=== PATIENT | male | born 1965 | race African-American/Black ===

== ENCOUNTER 2020-08-22 09:49 | Outpatient (CLI) | payer MEDICARE, OTHER | END 2020-08-22 09:50 | disposition home or self-care (01) | LOC: CSHWCC 09:49 | PROVIDERS: ATTEND Nurse Practitioner Family | DX: I87.311 Chronic venous hypertension (idiopathic) with ulcer of right lower extremity (principal); E11.621 Type 2 diabetes mellitus with foot ulcer; L97.419 Non-pressure chronic ulcer of right heel and midfoot with unspecified severity; L97.819 Non-pressure chronic ulcer of other part of right lower leg with unspecified severity; R60.0 Localized edema; L97.511 Non-pressure chronic ulcer of other part of right foot limited to breakdown of skin; E78.2 Mixed hyperlipidemia; F15.10 Other stimulant abuse, uncomplicated; I25.810 Atherosclerosis of coronary artery bypass graft(s) without angina pectoris; I70.25 Atherosclerosis of native arteries of other extremities with ulceration; L73.8 Other specified follicular disorders; Z91.19 Patient's noncompliance with other medical treatment and regimen; I12.0 Hypertensive chronic kidney disease with stage 5 chronic kidney disease or end stage renal disease; E11.22 Type 2 diabetes mellitus with diabetic chronic kidney disease; N18.6 End stage renal disease | CPT/HCPCS: 97605; 99213; G0463 ==

== ENCOUNTER 2020-09-02 10:43 | Outpatient (CLI) | payer MEDICARE, OTHER | END 2020-09-02 10:44 | disposition home or self-care (01) | LOC: CSHWCC 10:43 | PROVIDERS: ATTEND Nurse Practitioner Family | DX: I87.311 Chronic venous hypertension (idiopathic) with ulcer of right lower extremity (principal); I87.2 Venous insufficiency (chronic) (peripheral); E11.621 Type 2 diabetes mellitus with foot ulcer; L97.419 Non-pressure chronic ulcer of right heel and midfoot with unspecified severity; L97.819 Non-pressure chronic ulcer of other part of right lower leg with unspecified severity; L97.511 Non-pressure chronic ulcer of other part of right foot limited to breakdown of skin; R60.0 Localized edema; E78.2 Mixed hyperlipidemia; I12.0 Hypertensive chronic kidney disease with stage 5 chronic kidney disease or end stage renal disease; N18.6 End stage renal disease; E11.51 Type 2 diabetes mellitus with diabetic peripheral angiopathy without gangrene; I70.25 Atherosclerosis of native arteries of other extremities with ulceration; F15.10 Other stimulant abuse, uncomplicated; I25.810 Atherosclerosis of coronary artery bypass graft(s) without angina pectoris; L73.8 Other specified follicular disorders; Z91.19 Patient's noncompliance with other medical treatment and regimen | CPT/HCPCS: 29581; 97139; G0463; 99213 ==

== ENCOUNTER 2020-09-07 12:30 | Outpatient (CLI) | payer MEDICARE, OTHER | END 2020-09-07 12:31 | disposition home or self-care (01) | LOC: CSHWCC 12:30 | PROVIDERS: ATTEND Nurse Practitioner Family | DX: I87.311 Chronic venous hypertension (idiopathic) with ulcer of right lower extremity (principal); E11.621 Type 2 diabetes mellitus with foot ulcer; L97.419 Non-pressure chronic ulcer of right heel and midfoot with unspecified severity; L97.819 Non-pressure chronic ulcer of other part of right lower leg with unspecified severity; R60.0 Localized edema; L97.511 Non-pressure chronic ulcer of other part of right foot limited to breakdown of skin; E78.2 Mixed hyperlipidemia; F15.10 Other stimulant abuse, uncomplicated; I25.810 Atherosclerosis of coronary artery bypass graft(s) without angina pectoris; I70.25 Atherosclerosis of native arteries of other extremities with ulceration; I87.2 Venous insufficiency (chronic) (peripheral); L73.8 Other specified follicular disorders; N18.6 End stage renal disease; E11.22 Type 2 diabetes mellitus with diabetic chronic kidney disease; Z91.19 Patient's noncompliance with other medical treatment and regimen; I12.0 Hypertensive chronic kidney disease with stage 5 chronic kidney disease or end stage renal disease | CPT/HCPCS: 29581; 97139; G0463; 99213 ==

== ENCOUNTER 2021-03-17 10:36 | Outpatient (CLI) | payer MEDICARE, OTHER | END 2021-03-17 10:37 | disposition home or self-care (01) | LOC: CSHWCC 10:36 | PROVIDERS: ATTEND Nurse Practitioner Family | DX: E11.621 Type 2 diabetes mellitus with foot ulcer (principal); L97.412 Non-pressure chronic ulcer of right heel and midfoot with fat layer exposed; L97.419 Non-pressure chronic ulcer of right heel and midfoot with unspecified severity; L97.511 Non-pressure chronic ulcer of other part of right foot limited to breakdown of skin; E78.2 Mixed hyperlipidemia; F15.10 Other stimulant abuse, uncomplicated; I12.0 Hypertensive chronic kidney disease with stage 5 chronic kidney disease or end stage renal disease; E11.22 Type 2 diabetes mellitus with diabetic chronic kidney disease; I25.810 Atherosclerosis of coronary artery bypass graft(s) without angina pectoris; I70.25 Atherosclerosis of native arteries of other extremities with ulceration; I87.2 Venous insufficiency (chronic) (peripheral); L73.8 Other specified follicular disorders; N18.6 End stage renal disease; R60.0 Localized edema; Z91.19 Patient's noncompliance with other medical treatment and regimen | CPT/HCPCS: 97139; G0463; 99213 ==

== ENCOUNTER 2021-03-31 09:56 | Outpatient (CLI) | payer MEDICARE, OTHER | END 2021-03-31 09:57 | disposition home or self-care (01) | LOC: CSHWCC 09:56 | PROVIDERS: ATTEND Nurse Practitioner Family | DX: I87.2 Venous insufficiency (chronic) (peripheral) (principal); E11.621 Type 2 diabetes mellitus with foot ulcer; L97.412 Non-pressure chronic ulcer of right heel and midfoot with fat layer exposed; L97.419 Non-pressure chronic ulcer of right heel and midfoot with unspecified severity; L97.511 Non-pressure chronic ulcer of other part of right foot limited to breakdown of skin; R60.0 Localized edema; I12.0 Hypertensive chronic kidney disease with stage 5 chronic kidney disease or end stage renal disease; E11.22 Type 2 diabetes mellitus with diabetic chronic kidney disease; N18.6 End stage renal disease; I25.810 Atherosclerosis of coronary artery bypass graft(s) without angina pectoris; E11.51 Type 2 diabetes mellitus with diabetic peripheral angiopathy without gangrene; I70.25 Atherosclerosis of native arteries of other extremities with ulceration; E78.2 Mixed hyperlipidemia; F15.10 Other stimulant abuse, uncomplicated; L73.8 Other specified follicular disorders; Z91.19 Patient's noncompliance with other medical treatment and regimen | CPT/HCPCS: 99213; G0463 ==

== ENCOUNTER 2021-04-03 08:19 | Outpatient (CLI) | payer MEDICARE, OTHER | END 2021-04-03 08:20 | disposition home or self-care (01) | LOC: CSHWCC 08:19 | PROVIDERS: ATTEND Nurse Practitioner Family | DX: E11.621 Type 2 diabetes mellitus with foot ulcer (principal); L97.412 Non-pressure chronic ulcer of right heel and midfoot with fat layer exposed; L97.511 Non-pressure chronic ulcer of other part of right foot limited to breakdown of skin; E11.622 Type 2 diabetes mellitus with other skin ulcer; L97.809 Non-pressure chronic ulcer of other part of unspecified lower leg with unspecified severity; R60.0 Localized edema; E78.2 Mixed hyperlipidemia; F15.10 Other stimulant abuse, uncomplicated; I25.810 Atherosclerosis of coronary artery bypass graft(s) without angina pectoris; I70.25 Atherosclerosis of native arteries of other extremities with ulceration; I87.2 Venous insufficiency (chronic) (peripheral); L73.8 Other specified follicular disorders; I12.0 Hypertensive chronic kidney disease with stage 5 chronic kidney disease or end stage renal disease; N18.6 End stage renal disease; Z91.19 Patient's noncompliance with other medical treatment and regimen | CPT/HCPCS: 29445; 99213; G0463 ==

== ENCOUNTER 2021-04-10 08:20 | Outpatient (CLI) | payer MEDICARE, OTHER | END 2021-04-10 08:21 | disposition home or self-care (01) | LOC: CSHWCC 08:20 | PROVIDERS: ATTEND Nurse Practitioner Family | DX: E11.621 Type 2 diabetes mellitus with foot ulcer (principal); L97.412 Non-pressure chronic ulcer of right heel and midfoot with fat layer exposed; L97.511 Non-pressure chronic ulcer of other part of right foot limited to breakdown of skin; E11.622 Type 2 diabetes mellitus with other skin ulcer; L97.809 Non-pressure chronic ulcer of other part of unspecified lower leg with unspecified severity; R60.0 Localized edema; E78.2 Mixed hyperlipidemia; F15.10 Other stimulant abuse, uncomplicated; I25.810 Atherosclerosis of coronary artery bypass graft(s) without angina pectoris; I12.0 Hypertensive chronic kidney disease with stage 5 chronic kidney disease or end stage renal disease; N18.6 End stage renal disease; I87.2 Venous insufficiency (chronic) (peripheral); L73.8 Other specified follicular disorders; I70.25 Atherosclerosis of native arteries of other extremities with ulceration; Z91.19 Patient's noncompliance with other medical treatment and regimen | CPT/HCPCS: 11042; 29445; 97139; G0463; 99213 ==

== ENCOUNTER 2021-04-17 09:15 | Outpatient (CLI) | payer MEDICARE, OTHER | END 2021-04-17 09:16 | disposition home or self-care (01) | LOC: CSHWCC 09:15 | PROVIDERS: ATTEND Nurse Practitioner Family | DX: E11.621 Type 2 diabetes mellitus with foot ulcer (principal); L97.412 Non-pressure chronic ulcer of right heel and midfoot with fat layer exposed; L97.511 Non-pressure chronic ulcer of other part of right foot limited to breakdown of skin; E78.2 Mixed hyperlipidemia; F15.10 Other stimulant abuse, uncomplicated; I12.0 Hypertensive chronic kidney disease with stage 5 chronic kidney disease or end stage renal disease; I25.810 Atherosclerosis of coronary artery bypass graft(s) without angina pectoris; E11.22 Type 2 diabetes mellitus with diabetic chronic kidney disease; I70.25 Atherosclerosis of native arteries of other extremities with ulceration; I87.2 Venous insufficiency (chronic) (peripheral); L73.8 Other specified follicular disorders; N18.6 End stage renal disease; R60.0 Localized edema; Z91.19 Patient's noncompliance with other medical treatment and regimen | CPT/HCPCS: 29445; 97139; G0463; 99213 ==

== ENCOUNTER 2021-04-26 09:36 | Outpatient (CLI) | payer MEDICARE, OTHER | END 2021-04-26 09:37 | disposition home or self-care (01) | LOC: CSHWCC 09:36 | PROVIDERS: ATTEND Nurse Practitioner Family | DX: E11.621 Type 2 diabetes mellitus with foot ulcer (principal); L97.412 Non-pressure chronic ulcer of right heel and midfoot with fat layer exposed; L97.511 Non-pressure chronic ulcer of other part of right foot limited to breakdown of skin; E78.2 Mixed hyperlipidemia; F15.10 Other stimulant abuse, uncomplicated; I25.810 Atherosclerosis of coronary artery bypass graft(s) without angina pectoris; I70.25 Atherosclerosis of native arteries of other extremities with ulceration; I87.2 Venous insufficiency (chronic) (peripheral); L73.8 Other specified follicular disorders; I12.0 Hypertensive chronic kidney disease with stage 5 chronic kidney disease or end stage renal disease; N18.6 End stage renal disease; R60.0 Localized edema; Z91.19 Patient's noncompliance with other medical treatment and regimen ==

== ENCOUNTER 2021-04-28 09:55 | Outpatient (CLI) | payer MEDICARE, OTHER | END 2021-04-28 09:56 | disposition home or self-care (01) | LOC: CSHWCC 09:55 | PROVIDERS: ATTEND Nurse Practitioner Family | DX: E11.621 Type 2 diabetes mellitus with foot ulcer (principal); L97.412 Non-pressure chronic ulcer of right heel and midfoot with fat layer exposed; L97.511 Non-pressure chronic ulcer of other part of right foot limited to breakdown of skin; L89.892 Pressure ulcer of other site, stage 2; R60.0 Localized edema; E78.2 Mixed hyperlipidemia; F15.10 Other stimulant abuse, uncomplicated; I10 Essential (primary) hypertension; I25.810 Atherosclerosis of coronary artery bypass graft(s) without angina pectoris; I70.25 Atherosclerosis of native arteries of other extremities with ulceration; I87.2 Venous insufficiency (chronic) (peripheral); L73.8 Other specified follicular disorders; I12.0 Hypertensive chronic kidney disease with stage 5 chronic kidney disease or end stage renal disease; N18.6 End stage renal disease; Z91.19 Patient's noncompliance with other medical treatment and regimen | CPT/HCPCS: 29445; 99213; G0463 ==

== ENCOUNTER 2021-05-03 09:52 | Outpatient (CLI) | payer MEDICARE, OTHER | END 2021-05-03 09:53 | disposition home or self-care (01) | LOC: CSHWCC 09:52 | PROVIDERS: ATTEND Nurse Practitioner Family | DX: L89.892 Pressure ulcer of other site, stage 2 (principal); E11.621 Type 2 diabetes mellitus with foot ulcer; L97.412 Non-pressure chronic ulcer of right heel and midfoot with fat layer exposed; L97.511 Non-pressure chronic ulcer of other part of right foot limited to breakdown of skin; R60.0 Localized edema; E78.2 Mixed hyperlipidemia; F15.10 Other stimulant abuse, uncomplicated; I10 Essential (primary) hypertension; I25.810 Atherosclerosis of coronary artery bypass graft(s) without angina pectoris; I70.25 Atherosclerosis of native arteries of other extremities with ulceration; I87.2 Venous insufficiency (chronic) (peripheral); L73.8 Other specified follicular disorders; N18.6 End stage renal disease; Z91.19 Patient's noncompliance with other medical treatment and regimen ==

== ENCOUNTER 2021-05-17 10:59 | Outpatient (CLI) | payer MEDICARE, OTHER | END 2021-05-17 11:00 | disposition home or self-care (01) | LOC: CSHWCC 10:59 | PROVIDERS: ATTEND Nurse Practitioner Family | DX: L89.892 Pressure ulcer of other site, stage 2 (principal); E11.621 Type 2 diabetes mellitus with foot ulcer; L97.412 Non-pressure chronic ulcer of right heel and midfoot with fat layer exposed; L97.511 Non-pressure chronic ulcer of other part of right foot limited to breakdown of skin; R60.0 Localized edema; E78.2 Mixed hyperlipidemia; F15.10 Other stimulant abuse, uncomplicated; I25.810 Atherosclerosis of coronary artery bypass graft(s) without angina pectoris; I87.2 Venous insufficiency (chronic) (peripheral); I70.25 Atherosclerosis of native arteries of other extremities with ulceration; L73.8 Other specified follicular disorders; I12.0 Hypertensive chronic kidney disease with stage 5 chronic kidney disease or end stage renal disease; N18.6 End stage renal disease; Z91.19 Patient's noncompliance with other medical treatment and regimen | CPT/HCPCS: 97139; G0463; 29445; 99212; 99213 ==

== ENCOUNTER 2021-05-26 11:15 | Outpatient (CLI) | payer MEDICARE, OTHER | END 2021-05-26 11:16 | disposition home or self-care (01) | LOC: CSHWCC 11:15 | PROVIDERS: ATTEND Nurse Practitioner Family | DX: E11.621 Type 2 diabetes mellitus with foot ulcer (principal); L97.419 Non-pressure chronic ulcer of right heel and midfoot with unspecified severity; E11.22 Type 2 diabetes mellitus with diabetic chronic kidney disease; I12.0 Hypertensive chronic kidney disease with stage 5 chronic kidney disease or end stage renal disease; L97.511 Non-pressure chronic ulcer of other part of right foot limited to breakdown of skin; E78.2 Mixed hyperlipidemia; F15.10 Other stimulant abuse, uncomplicated; I25.810 Atherosclerosis of coronary artery bypass graft(s) without angina pectoris; I70.25 Atherosclerosis of native arteries of other extremities with ulceration; I87.2 Venous insufficiency (chronic) (peripheral); L73.8 Other specified follicular disorders; N18.6 End stage renal disease; R60.0 Localized edema; Z91.19 Patient's noncompliance with other medical treatment and regimen ==

== ENCOUNTER 2021-06-02 11:07 | Outpatient (CLI) | payer MEDICARE, OTHER | END 2021-06-02 11:08 | disposition home or self-care (01) | LOC: CSHWCC 11:07 | PROVIDERS: ATTEND Nurse Practitioner Family | DX: E11.621 Type 2 diabetes mellitus with foot ulcer (principal); L97.419 Non-pressure chronic ulcer of right heel and midfoot with unspecified severity; L97.511 Non-pressure chronic ulcer of other part of right foot limited to breakdown of skin; R60.0 Localized edema; E78.2 Mixed hyperlipidemia; F15.10 Other stimulant abuse, uncomplicated; I25.810 Atherosclerosis of coronary artery bypass graft(s) without angina pectoris; I70.25 Atherosclerosis of native arteries of other extremities with ulceration; I87.2 Venous insufficiency (chronic) (peripheral); L73.8 Other specified follicular disorders; I12.0 Hypertensive chronic kidney disease with stage 5 chronic kidney disease or end stage renal disease; N18.6 End stage renal disease; Z91.19 Patient's noncompliance with other medical treatment and regimen | CPT/HCPCS: 29445; 99213; G0463 ==

== ENCOUNTER 2021-06-09 13:55 | Outpatient (CLI) | payer MEDICARE, OTHER | END 2021-06-09 13:56 | disposition home or self-care (01) | LOC: CSHWCC 13:55 | PROVIDERS: ATTEND Nurse Practitioner Family | DX: I87.2 Venous insufficiency (chronic) (peripheral) (principal); E11.621 Type 2 diabetes mellitus with foot ulcer; L97.419 Non-pressure chronic ulcer of right heel and midfoot with unspecified severity; L97.511 Non-pressure chronic ulcer of other part of right foot limited to breakdown of skin; R60.0 Localized edema; I12.0 Hypertensive chronic kidney disease with stage 5 chronic kidney disease or end stage renal disease; N18.6 End stage renal disease; E11.51 Type 2 diabetes mellitus with diabetic peripheral angiopathy without gangrene; I70.25 Atherosclerosis of native arteries of other extremities with ulceration; I25.810 Atherosclerosis of coronary artery bypass graft(s) without angina pectoris; E78.2 Mixed hyperlipidemia; F15.10 Other stimulant abuse, uncomplicated; Z91.19 Patient's noncompliance with other medical treatment and regimen | CPT/HCPCS: 87070; 87077; 87186; 87205 ==

== ENCOUNTER 2021-06-16 09:00 | Outpatient (CLI) | payer MEDICARE, OTHER | END 2021-06-16 09:01 | disposition home or self-care (01) | LOC: CSHWCC 09:00 | PROVIDERS: ATTEND Nurse Practitioner Family | DX: E11.621 Type 2 diabetes mellitus with foot ulcer (principal); L97.412 Non-pressure chronic ulcer of right heel and midfoot with fat layer exposed; R60.0 Localized edema ==

== ENCOUNTER 2021-06-26 08:23 | Outpatient (CLI) | payer MEDICARE, OTHER | END 2021-06-26 08:24 | disposition home or self-care (01) | LOC: CSHWCC 08:23 | PROVIDERS: ATTEND Nurse Practitioner Family | DX: E11.621 Type 2 diabetes mellitus with foot ulcer (principal); L97.412 Non-pressure chronic ulcer of right heel and midfoot with fat layer exposed; R60.0 Localized edema | CPT/HCPCS: 99213; G0463 ==

== ENCOUNTER 2021-07-12 09:05 | Outpatient (CLI) | payer MEDICARE, OTHER | END 2021-07-12 09:06 | disposition home or self-care (01) | LOC: CSHWCC 09:05 | PROVIDERS: ATTEND Nurse Practitioner Family | DX: E11.621 Type 2 diabetes mellitus with foot ulcer (principal); L97.419 Non-pressure chronic ulcer of right heel and midfoot with unspecified severity; R60.0 Localized edema | CPT/HCPCS: 29445 ==

== ENCOUNTER 2021-07-19 08:51 | Outpatient (CLI) | payer MEDICARE, MEDICAID | END 2021-07-19 08:52 | disposition home or self-care (01) | LOC: CSHWCC 08:51 | PROVIDERS: ATTEND Nurse Practitioner Family | DX: E11.621 Type 2 diabetes mellitus with foot ulcer (principal); L97.412 Non-pressure chronic ulcer of right heel and midfoot with fat layer exposed; R60.0 Localized edema | CPT/HCPCS: 29445 ==

== ENCOUNTER 2021-08-18 08:18 | Outpatient (CLI) | payer MEDICARE, MEDICAID | END 2021-08-18 08:19 | disposition home or self-care (01) | LOC: CSHWCC 08:18 | PROVIDERS: ATTEND Nurse Practitioner Family | DX: E11.621 Type 2 diabetes mellitus with foot ulcer (principal); L97.412 Non-pressure chronic ulcer of right heel and midfoot with fat layer exposed; S81.801D Unspecified open wound, right lower leg, subsequent encounter; R60.0 Localized edema ==

== ENCOUNTER 2021-08-25 08:29 | Outpatient (CLI) | payer MEDICARE, MEDICAID | END 2021-08-25 08:30 | disposition home or self-care (01) | LOC: CSHWCC 08:29 | PROVIDERS: ATTEND Nurse Practitioner Family | DX: S81.801D Unspecified open wound, right lower leg, subsequent encounter (principal); E11.621 Type 2 diabetes mellitus with foot ulcer; L97.412 Non-pressure chronic ulcer of right heel and midfoot with fat layer exposed; R60.0 Localized edema | CPT/HCPCS: 29445 ==

== ENCOUNTER 2021-09-11 08:59 | Outpatient (CLI) | payer MEDICARE, OTHER | END 2021-09-11 09:00 | disposition home or self-care (01) | LOC: CSHWCC 08:59 | PROVIDERS: ATTEND Nurse Practitioner Family | DX: E11.621 Type 2 diabetes mellitus with foot ulcer (principal); L97.516 Non-pressure chronic ulcer of other part of right foot with bone involvement without evidence of necrosis; R60.0 Localized edema | CPT/HCPCS: 99213; G0463 ==

== ENCOUNTER 2021-09-22 08:40 | Outpatient (CLI) | payer MEDICARE, OTHER | END 2021-09-22 08:41 | disposition home or self-care (01) | LOC: CSHWCC 08:40 | PROVIDERS: ATTEND Nurse Practitioner Family | DX: E11.621 Type 2 diabetes mellitus with foot ulcer (principal); L97.516 Non-pressure chronic ulcer of other part of right foot with bone involvement without evidence of necrosis | CPT/HCPCS: 11042 ==

== ENCOUNTER 2021-09-29 10:06 | Outpatient (CLI) | payer MEDICARE, OTHER | END 2021-09-29 10:07 | disposition home or self-care (01) | LOC: CSHWCC 10:06 | PROVIDERS: ATTEND Nurse Practitioner Family | DX: E11.621 Type 2 diabetes mellitus with foot ulcer (principal); L97.516 Non-pressure chronic ulcer of other part of right foot with bone involvement without evidence of necrosis; R60.0 Localized edema ==

== ENCOUNTER 2021-10-05 14:26 | Outpatient (CLI) | payer MEDICARE, OTHER | END 2021-10-05 14:27 | disposition home or self-care (01) | LOC: CSHWCC 14:26 | PROVIDERS: ATTEND Nurse Practitioner Family | DX: E11.621 Type 2 diabetes mellitus with foot ulcer (principal); L97.416 Non-pressure chronic ulcer of right heel and midfoot with bone involvement without evidence of necrosis; L97.411 Non-pressure chronic ulcer of right heel and midfoot limited to breakdown of skin; R60.0 Localized edema ==

== ENCOUNTER 2021-10-11 09:49 | Outpatient (CLI) | payer MEDICARE, OTHER | END 2021-10-11 09:50 | disposition home or self-care (01) | LOC: CSHWCC 09:49 | PROVIDERS: ATTEND Nurse Practitioner Family | DX: E11.621 Type 2 diabetes mellitus with foot ulcer (principal); L97.516 Non-pressure chronic ulcer of other part of right foot with bone involvement without evidence of necrosis; L97.411 Non-pressure chronic ulcer of right heel and midfoot limited to breakdown of skin; R60.0 Localized edema | CPT/HCPCS: 99213; G0463 ==

== ENCOUNTER 2021-10-20 08:01 | Outpatient (CLI) | payer MEDICARE, OTHER | END 2021-10-20 08:02 | disposition home or self-care (01) | LOC: CSHWCC 08:01 | PROVIDERS: ATTEND Nurse Practitioner Family | DX: E11.621 Type 2 diabetes mellitus with foot ulcer (principal); L97.516 Non-pressure chronic ulcer of other part of right foot with bone involvement without evidence of necrosis; R60.0 Localized edema | CPT/HCPCS: 11042 ==

== ENCOUNTER 2021-10-27 10:04 | Outpatient (CLI) | payer MEDICARE, OTHER | END 2021-10-27 10:05 | disposition home or self-care (01) | LOC: CSHWCC 10:04 | PROVIDERS: ATTEND Nurse Practitioner Family | DX: E11.621 Type 2 diabetes mellitus with foot ulcer (principal); L97.516 Non-pressure chronic ulcer of other part of right foot with bone involvement without evidence of necrosis; S91.309D Unspecified open wound, unspecified foot, subsequent encounter; R60.0 Localized edema | CPT/HCPCS: 97139; G0463; 99213 ==

== ENCOUNTER 2021-11-03 10:46 | Outpatient (CLI) | payer MEDICARE, MEDICAID | END 2021-11-03 10:47 | disposition home or self-care (01) | LOC: CSHWCC 10:46 | PROVIDERS: ATTEND Nurse Practitioner Family | DX: S91.301D Unspecified open wound, right foot, subsequent encounter (principal); E11.621 Type 2 diabetes mellitus with foot ulcer; L97.516 Non-pressure chronic ulcer of other part of right foot with bone involvement without evidence of necrosis; R60.0 Localized edema | CPT/HCPCS: 97139; G0463; 99213 ==

== ENCOUNTER 2021-11-10 10:41 | Outpatient (CLI) | payer MEDICARE, OTHER | END 2021-11-10 10:42 | disposition home or self-care (01) | LOC: CSHWCC 10:41 | PROVIDERS: ATTEND Nurse Practitioner Family | DX: S91.301D Unspecified open wound, right foot, subsequent encounter (principal); E11.621 Type 2 diabetes mellitus with foot ulcer; L97.516 Non-pressure chronic ulcer of other part of right foot with bone involvement without evidence of necrosis; R60.0 Localized edema ==

== ENCOUNTER 2021-11-15 10:57 | Outpatient (CLI) | payer MEDICARE, OTHER | END 2021-11-15 10:58 | disposition home or self-care (01) | LOC: CSHWCC 10:57 | PROVIDERS: ATTEND Nurse Practitioner Family | DX: E11.621 Type 2 diabetes mellitus with foot ulcer (principal); L97.516 Non-pressure chronic ulcer of other part of right foot with bone involvement without evidence of necrosis; S91.301D Unspecified open wound, right foot, subsequent encounter; R60.0 Localized edema | CPT/HCPCS: 99213; G0463 ==

== ENCOUNTER 2021-11-23 13:07 | Outpatient (CLI) | payer MEDICARE, OTHER | END 2021-11-23 13:08 | disposition home or self-care (01) | LOC: CSHWCC 13:07 | PROVIDERS: ATTEND Nurse Practitioner Family | DX: S91.309D Unspecified open wound, unspecified foot, subsequent encounter (principal); R60.0 Localized edema ==

== ENCOUNTER 2021-11-30 13:59 | Outpatient (CLI) | payer MEDICARE, OTHER | END 2021-11-30 14:00 | disposition home or self-care (01) | LOC: CSHWCC 13:59 | PROVIDERS: ATTEND Nurse Practitioner Family | DX: L97.411 Non-pressure chronic ulcer of right heel and midfoot limited to breakdown of skin (principal); S91.309D Unspecified open wound, unspecified foot, subsequent encounter; R60.0 Localized edema ==

== ENCOUNTER 2021-12-06 10:19 | Outpatient (CLI) | payer MEDICARE, OTHER | END 2021-12-06 10:20 | disposition home or self-care (01) | LOC: CSHWCC 10:19 | PROVIDERS: ATTEND Nurse Practitioner Family | DX: E11.621 Type 2 diabetes mellitus with foot ulcer (principal); L97.412 Non-pressure chronic ulcer of right heel and midfoot with fat layer exposed; L97.411 Non-pressure chronic ulcer of right heel and midfoot limited to breakdown of skin; R60.0 Localized edema | CPT/HCPCS: 11042; 87070; 87077; 87186; 87205; 99213; G0463 ==

== ENCOUNTER 2021-12-13 11:22 | Outpatient (CLI) | payer MEDICARE, OTHER | END 2021-12-13 11:23 | disposition home or self-care (01) | LOC: CSHWCC 11:22 | PROVIDERS: ATTEND Nurse Practitioner Family | DX: E11.621 Type 2 diabetes mellitus with foot ulcer (principal); L97.412 Non-pressure chronic ulcer of right heel and midfoot with fat layer exposed; L97.411 Non-pressure chronic ulcer of right heel and midfoot limited to breakdown of skin; R60.0 Localized edema ==

== ENCOUNTER 2021-12-18 13:53 | Outpatient (CLI) | payer MEDICARE, OTHER | END 2021-12-18 13:54 | disposition home or self-care (01) | LOC: CSHWCC 13:53 | PROVIDERS: ATTEND Nurse Practitioner Family | DX: E11.621 Type 2 diabetes mellitus with foot ulcer (principal); L97.412 Non-pressure chronic ulcer of right heel and midfoot with fat layer exposed; R60.0 Localized edema | CPT/HCPCS: 99213; G0463 ==

== ENCOUNTER 2021-12-25 10:57 | Outpatient (CLI) | payer OTHER, MEDICAID | END 2021-12-25 10:58 | disposition home or self-care (01) | LOC: CSHWCC 10:57 | PROVIDERS: ATTEND Nurse Practitioner Family | DX: E11.621 Type 2 diabetes mellitus with foot ulcer (principal); E11.622 Type 2 diabetes mellitus with other skin ulcer; L97.412 Non-pressure chronic ulcer of right heel and midfoot with fat layer exposed; L97.812 Non-pressure chronic ulcer of other part of right lower leg with fat layer exposed; R60.0 Localized edema | CPT/HCPCS: 99213; G0463 ==

== ENCOUNTER 2022-01-01 14:28 | Outpatient (CLI) | payer MEDICARE, OTHER | END 2022-01-01 14:29 | disposition home or self-care (01) | LOC: CSHWCC 14:28 | PROVIDERS: ATTEND Nurse Practitioner Family | DX: E11.621 Type 2 diabetes mellitus with foot ulcer (principal); L97.412 Non-pressure chronic ulcer of right heel and midfoot with fat layer exposed; R60.0 Localized edema; E11.622 Type 2 diabetes mellitus with other skin ulcer; L97.812 Non-pressure chronic ulcer of other part of right lower leg with fat layer exposed | CPT/HCPCS: 99214; G0463 ==

== ENCOUNTER 2022-01-10 12:56 | Outpatient (CLI) | payer MEDICARE, OTHER | END 2022-01-10 12:57 | disposition home or self-care (01) | LOC: CSHWCC 12:56 | PROVIDERS: ATTEND Preventive Medicine Undersea and Hyperbaric Medicine | DX: E11.621 Type 2 diabetes mellitus with foot ulcer (principal); E11.622 Type 2 diabetes mellitus with other skin ulcer; L97.412 Non-pressure chronic ulcer of right heel and midfoot with fat layer exposed; L97.812 Non-pressure chronic ulcer of other part of right lower leg with fat layer exposed; R60.0 Localized edema | CPT/HCPCS: 97139; 97597; G0463; 99213 ==

== ENCOUNTER 2022-01-26 10:15 | Outpatient (CLI) | payer MEDICARE, OTHER | END 2022-01-26 10:16 | disposition home or self-care (01) | LOC: CSHWCC 10:15 | PROVIDERS: ATTEND Preventive Medicine Undersea and Hyperbaric Medicine | DX: E11.621 Type 2 diabetes mellitus with foot ulcer (principal); L97.412 Non-pressure chronic ulcer of right heel and midfoot with fat layer exposed; R60.0 Localized edema | CPT/HCPCS: 99213; G0463 ==

== ENCOUNTER 2022-02-02 09:51 | Outpatient (CLI) | payer MEDICARE, OTHER | END 2022-02-02 09:52 | disposition home or self-care (01) | LOC: CSHWCC 09:51 | PROVIDERS: ATTEND Nurse Practitioner Family | DX: E11.621 Type 2 diabetes mellitus with foot ulcer (principal); L97.412 Non-pressure chronic ulcer of right heel and midfoot with fat layer exposed; E11.622 Type 2 diabetes mellitus with other skin ulcer; L97.812 Non-pressure chronic ulcer of other part of right lower leg with fat layer exposed; R60.0 Localized edema ==

== ENCOUNTER 2022-02-12 10:51 | Outpatient (CLI) | payer MEDICARE, MEDICAID | END 2022-02-12 10:52 | disposition home or self-care (01) | LOC: CSHWCC 10:51 | PROVIDERS: ATTEND Preventive Medicine Undersea and Hyperbaric Medicine | DX: E11.621 Type 2 diabetes mellitus with foot ulcer (principal); L97.412 Non-pressure chronic ulcer of right heel and midfoot with fat layer exposed; R60.0 Localized edema | CPT/HCPCS: 99213; G0463 ==

== ENCOUNTER 2022-03-05 11:20 | Outpatient (CLI) | payer MEDICARE, MEDICAID | END 2022-03-05 11:21 | disposition home or self-care (01) | LOC: CSHWCC 11:20 | PROVIDERS: ATTEND Preventive Medicine Undersea and Hyperbaric Medicine | DX: I87.311 Chronic venous hypertension (idiopathic) with ulcer of right lower extremity (principal); E11.621 Type 2 diabetes mellitus with foot ulcer; L97.412 Non-pressure chronic ulcer of right heel and midfoot with fat layer exposed; L97.819 Non-pressure chronic ulcer of other part of right lower leg with unspecified severity; S91.301D Unspecified open wound, right foot, subsequent encounter; R60.0 Localized edema | CPT/HCPCS: 99213; G0463 ==

== ENCOUNTER 2022-03-14 09:24 | Outpatient (CLI) | payer MEDICARE, MEDICAID | END 2022-03-14 09:25 | disposition home or self-care (01) | LOC: CSHWCC 09:24 | PROVIDERS: ATTEND Nurse Practitioner Family | DX: S91.301D Unspecified open wound, right foot, subsequent encounter (principal); E11.621 Type 2 diabetes mellitus with foot ulcer; L97.412 Non-pressure chronic ulcer of right heel and midfoot with fat layer exposed; R60.0 Localized edema | CPT/HCPCS: 29445; 97139; G0463; 99213 ==

== ENCOUNTER 2022-03-21 13:25 | Outpatient (CLI) | payer MEDICARE, MEDICAID | END 2022-03-21 13:26 | disposition home or self-care (01) | LOC: CSHWCC 13:25 | PROVIDERS: ATTEND Nurse Practitioner Family | DX: I87.311 Chronic venous hypertension (idiopathic) with ulcer of right lower extremity (principal); L97.819 Non-pressure chronic ulcer of other part of right lower leg with unspecified severity; E11.621 Type 2 diabetes mellitus with foot ulcer; L97.412 Non-pressure chronic ulcer of right heel and midfoot with fat layer exposed; R60.0 Localized edema | CPT/HCPCS: 29445 ==

== ENCOUNTER 2022-03-30 09:22 | Outpatient (CLI) | payer MEDICARE, MEDICAID | END 2022-03-30 09:23 | disposition home or self-care (01) | LOC: CSHWCC 09:22 | PROVIDERS: ATTEND Nurse Practitioner Family | DX: I87.311 Chronic venous hypertension (idiopathic) with ulcer of right lower extremity (principal); E11.621 Type 2 diabetes mellitus with foot ulcer; E11.622 Type 2 diabetes mellitus with other skin ulcer; L97.412 Non-pressure chronic ulcer of right heel and midfoot with fat layer exposed; L97.819 Non-pressure chronic ulcer of other part of right lower leg with unspecified severity; R60.0 Localized edema | CPT/HCPCS: 97139; G0463; 99213 ==

== ENCOUNTER 2022-05-09 09:25 | Outpatient (CLI) | payer MEDICARE, OTHER, MEDICAID | END 2022-05-09 09:26 | disposition home or self-care (01) | LOC: CSHWCC 09:25 | PROVIDERS: ATTEND Nurse Practitioner Family | DX: I87.311 Chronic venous hypertension (idiopathic) with ulcer of right lower extremity (principal); E11.621 Type 2 diabetes mellitus with foot ulcer; L97.819 Non-pressure chronic ulcer of other part of right lower leg with unspecified severity; L97.412 Non-pressure chronic ulcer of right heel and midfoot with fat layer exposed; R60.0 Localized edema | CPT/HCPCS: 29445; 29581 ==

== ENCOUNTER 2022-05-18 08:41 | Outpatient (CLI) | payer MEDICARE, OTHER, MEDICAID | END 2022-05-18 08:42 | disposition home or self-care (01) | LOC: CSHWCC 08:41 | PROVIDERS: ATTEND Nurse Practitioner Family | DX: I87.311 Chronic venous hypertension (idiopathic) with ulcer of right lower extremity (principal); E11.621 Type 2 diabetes mellitus with foot ulcer; L97.819 Non-pressure chronic ulcer of other part of right lower leg with unspecified severity; L97.412 Non-pressure chronic ulcer of right heel and midfoot with fat layer exposed; R60.0 Localized edema ==

== ENCOUNTER 2022-06-01 10:39 | Outpatient (CLI) | payer MEDICARE, OTHER | END 2022-06-01 10:40 | disposition home or self-care (01) | LOC: CSHWCC 10:39 | PROVIDERS: ATTEND Nurse Practitioner Family | DX: I87.311 Chronic venous hypertension (idiopathic) with ulcer of right lower extremity (principal); E11.621 Type 2 diabetes mellitus with foot ulcer; L97.819 Non-pressure chronic ulcer of other part of right lower leg with unspecified severity; L97.412 Non-pressure chronic ulcer of right heel and midfoot with fat layer exposed; R60.0 Localized edema | CPT/HCPCS: 29445 ==

== ENCOUNTER 2022-06-11 09:24 | Outpatient (CLI) | payer MEDICARE, OTHER | END 2022-06-11 09:25 | disposition home or self-care (01) | LOC: CSHWCC 09:24 | PROVIDERS: ATTEND Nurse Practitioner Family | DX: E11.621 Type 2 diabetes mellitus with foot ulcer (principal); L97.412 Non-pressure chronic ulcer of right heel and midfoot with fat layer exposed; I87.311 Chronic venous hypertension (idiopathic) with ulcer of right lower extremity; L97.819 Non-pressure chronic ulcer of other part of right lower leg with unspecified severity; R60.0 Localized edema | CPT/HCPCS: 29445 ==

== ENCOUNTER 2022-06-18 10:15 | Outpatient (CLI) | payer MEDICARE, OTHER | END 2022-06-18 10:16 | disposition home or self-care (01) | LOC: CSHWCC 10:15 | PROVIDERS: ATTEND Nurse Practitioner Family | DX: E11.621 Type 2 diabetes mellitus with foot ulcer (principal); L97.412 Non-pressure chronic ulcer of right heel and midfoot with fat layer exposed; R60.0 Localized edema | CPT/HCPCS: 29445 ==

== ENCOUNTER 2022-06-25 09:42 | Outpatient (CLI) | payer MEDICARE, OTHER | END 2022-06-25 09:43 | disposition home or self-care (01) | LOC: CSHWCC 09:42 | PROVIDERS: ATTEND Nurse Practitioner Family | DX: E11.621 Type 2 diabetes mellitus with foot ulcer (principal); L97.412 Non-pressure chronic ulcer of right heel and midfoot with fat layer exposed; R60.0 Localized edema | CPT/HCPCS: 29445 ==

== ENCOUNTER 2022-07-02 10:33 | Outpatient (CLI) | payer MEDICARE, OTHER | END 2022-07-02 10:34 | disposition home or self-care (01) | LOC: CSHWCC 10:33 | PROVIDERS: ATTEND Nurse Practitioner Family | DX: M79.604 Pain in right leg (principal) | CPT/HCPCS: 99213; G0463 ==

== ENCOUNTER 2022-07-09 09:24 | Outpatient (CLI) | payer MEDICARE, OTHER | END 2022-07-09 09:25 | disposition home or self-care (01) | LOC: CSHWCC 09:24 | PROVIDERS: ATTEND Nurse Practitioner Family | DX: E11.621 Type 2 diabetes mellitus with foot ulcer (principal); L97.412 Non-pressure chronic ulcer of right heel and midfoot with fat layer exposed; R60.0 Localized edema | CPT/HCPCS: 29445 ==

== ENCOUNTER 2022-07-18 09:03 | Outpatient (CLI) | payer MEDICARE, OTHER | END 2022-07-18 09:04 | disposition home or self-care (01) | LOC: CSHWCC 09:03 | PROVIDERS: ATTEND Nurse Practitioner Family | DX: E11.621 Type 2 diabetes mellitus with foot ulcer (principal); L97.412 Non-pressure chronic ulcer of right heel and midfoot with fat layer exposed; R60.0 Localized edema | CPT/HCPCS: 29445 ==

== ENCOUNTER 2022-07-25 09:27 | Outpatient (CLI) | payer MEDICARE, OTHER | END 2022-07-25 09:28 | disposition home or self-care (01) | LOC: CSHWCC 09:27 | PROVIDERS: ATTEND Nurse Practitioner Family | DX: E11.621 Type 2 diabetes mellitus with foot ulcer (principal); L97.412 Non-pressure chronic ulcer of right heel and midfoot with fat layer exposed; R60.0 Localized edema | CPT/HCPCS: 29445 ==

== ENCOUNTER 2022-08-01 10:05 | Outpatient (CLI) | payer MEDICARE, OTHER | END 2022-08-01 10:06 | disposition home or self-care (01) | LOC: CSHWCC 10:05 | PROVIDERS: ATTEND Nurse Practitioner Family | DX: E11.621 Type 2 diabetes mellitus with foot ulcer (principal); L97.412 Non-pressure chronic ulcer of right heel and midfoot with fat layer exposed; R60.0 Localized edema | CPT/HCPCS: 29445 ==

== ENCOUNTER 2022-08-16 13:58 | Outpatient (CLI) | payer MEDICARE, OTHER | END 2022-08-16 13:59 | disposition home or self-care (01) | LOC: CSHWCC 13:58 | PROVIDERS: ATTEND Family Medicine | DX: E11.621 Type 2 diabetes mellitus with foot ulcer (principal); L97.412 Non-pressure chronic ulcer of right heel and midfoot with fat layer exposed; R60.0 Localized edema | CPT/HCPCS: 36416; 87070; 87077; 87205; 99213; G0463 ==

== ENCOUNTER 2022-08-20 10:00 | Outpatient (CLI) | payer MEDICARE, OTHER | END 2022-08-20 10:01 | disposition home or self-care (01) | LOC: CSHWCC 10:00 | PROVIDERS: ATTEND Nurse Practitioner Family | DX: E11.621 Type 2 diabetes mellitus with foot ulcer (principal); L97.412 Non-pressure chronic ulcer of right heel and midfoot with fat layer exposed; S91.301D Unspecified open wound, right foot, subsequent encounter | CPT/HCPCS: 97139; G0463; 99213 ==

== ENCOUNTER 2022-08-29 08:46 | Outpatient (CLI) | payer MEDICARE, OTHER | END 2022-08-29 08:47 | disposition home or self-care (01) | LOC: CSHWCC 08:46 | PROVIDERS: ATTEND Nurse Practitioner Family | DX: S91.301D Unspecified open wound, right foot, subsequent encounter (principal); E11.621 Type 2 diabetes mellitus with foot ulcer; L97.412 Non-pressure chronic ulcer of right heel and midfoot with fat layer exposed; R60.0 Localized edema | CPT/HCPCS: 29445; 97139; G0463; 99213 ==

== ENCOUNTER 2022-08-31 11:36 | Outpatient (CLI) | payer MEDICARE, OTHER | END 2022-08-31 11:37 | disposition home or self-care (01) | LOC: CSHWCC 11:36 | PROVIDERS: ATTEND Nurse Practitioner Family | DX: E11.621 Type 2 diabetes mellitus with foot ulcer (principal); L97.412 Non-pressure chronic ulcer of right heel and midfoot with fat layer exposed; S91.301D Unspecified open wound, right foot, subsequent encounter; R60.0 Localized edema | CPT/HCPCS: 29445; 97139; G0463; 99213 ==

== ENCOUNTER 2022-09-05 10:09 | Outpatient (CLI) | payer MEDICARE, OTHER | END 2022-09-05 10:10 | disposition home or self-care (01) | LOC: CSHWCC 10:09 | PROVIDERS: ATTEND Nurse Practitioner Family | DX: R60.0 Localized edema (principal); E11.621 Type 2 diabetes mellitus with foot ulcer; L97.415 Non-pressure chronic ulcer of right heel and midfoot with muscle involvement without evidence of necrosis | CPT/HCPCS: 11042; 97139; G0463; 99213 ==

== ENCOUNTER 2022-09-12 10:28 | Outpatient (CLI) | payer MEDICARE, OTHER | END 2022-09-12 10:29 | disposition home or self-care (01) | LOC: CSHWCC 10:28 | PROVIDERS: ATTEND Nurse Practitioner Family | DX: E11.621 Type 2 diabetes mellitus with foot ulcer (principal); L97.415 Non-pressure chronic ulcer of right heel and midfoot with muscle involvement without evidence of necrosis; R60.0 Localized edema | CPT/HCPCS: 11042 ==

== ENCOUNTER 2022-09-19 09:30 | Outpatient (CLI) | payer MEDICARE, OTHER | END 2022-09-19 09:31 | disposition home or self-care (01) | LOC: CSHWCC 09:30 | PROVIDERS: ATTEND Nurse Practitioner Family | DX: E11.621 Type 2 diabetes mellitus with foot ulcer (principal); L97.415 Non-pressure chronic ulcer of right heel and midfoot with muscle involvement without evidence of necrosis; R60.0 Localized edema | CPT/HCPCS: 29445 ==

== ENCOUNTER 2022-09-26 09:09 | Outpatient (CLI) | payer MEDICARE, OTHER | END 2022-09-26 09:10 | disposition home or self-care (01) | LOC: CSHWCC 09:09 | PROVIDERS: ATTEND Nurse Practitioner Family | DX: R60.0 Localized edema (principal); E11.621 Type 2 diabetes mellitus with foot ulcer; L97.415 Non-pressure chronic ulcer of right heel and midfoot with muscle involvement without evidence of necrosis | CPT/HCPCS: 11042; 29445 ==

== ENCOUNTER 2022-10-17 09:17 | Outpatient (CLI) | payer MEDICARE, OTHER | END 2022-10-17 09:18 | disposition home or self-care (01) | LOC: CSHWCC 09:17 | PROVIDERS: ATTEND Nurse Practitioner Family | DX: E11.621 Type 2 diabetes mellitus with foot ulcer (principal); E11.622 Type 2 diabetes mellitus with other skin ulcer; L97.811 Non-pressure chronic ulcer of other part of right lower leg limited to breakdown of skin; L97.415 Non-pressure chronic ulcer of right heel and midfoot with muscle involvement without evidence of necrosis; R60.0 Localized edema | CPT/HCPCS: 29445; 97139; G0463; 99213 ==

== ENCOUNTER 2022-10-24 09:26 | Outpatient (CLI) | payer MEDICARE, OTHER | END 2022-10-24 09:27 | disposition home or self-care (01) | LOC: CSHWCC 09:26 | PROVIDERS: ATTEND Nurse Practitioner Family | DX: E11.621 Type 2 diabetes mellitus with foot ulcer (principal); E11.622 Type 2 diabetes mellitus with other skin ulcer; L97.811 Non-pressure chronic ulcer of other part of right lower leg limited to breakdown of skin; L97.415 Non-pressure chronic ulcer of right heel and midfoot with muscle involvement without evidence of necrosis; R60.0 Localized edema | CPT/HCPCS: 29445 ==

== ENCOUNTER 2022-10-31 13:39 | Outpatient (CLI) | payer MEDICARE, OTHER | END 2022-10-31 13:40 | disposition home or self-care (01) | LOC: CSHWCC 13:39 | PROVIDERS: ATTEND Nurse Practitioner Family | DX: R60.0 Localized edema (principal); E11.621 Type 2 diabetes mellitus with foot ulcer; L97.415 Non-pressure chronic ulcer of right heel and midfoot with muscle involvement without evidence of necrosis | CPT/HCPCS: 29445 ==

== ENCOUNTER 2022-11-14 10:16 | Outpatient (CLI) | payer MEDICARE, OTHER | END 2022-11-14 10:17 | disposition home or self-care (01) | LOC: CSHWCC 10:16 | PROVIDERS: ATTEND Nurse Practitioner Family | DX: E11.621 Type 2 diabetes mellitus with foot ulcer (principal); L97.415 Non-pressure chronic ulcer of right heel and midfoot with muscle involvement without evidence of necrosis; R60.0 Localized edema | CPT/HCPCS: 29445; 97139; G0463; 99213 ==

== ENCOUNTER 2022-11-26 14:36 | Outpatient (CLI) | payer MEDICARE, OTHER | END 2022-11-26 14:37 | disposition home or self-care (01) | LOC: CSHWCC 14:36 | PROVIDERS: ATTEND Nurse Practitioner Family | DX: R60.0 Localized edema (principal); E11.621 Type 2 diabetes mellitus with foot ulcer; L97.415 Non-pressure chronic ulcer of right heel and midfoot with muscle involvement without evidence of necrosis | CPT/HCPCS: 97139; G0463; 99213 ==

== ENCOUNTER 2022-12-04 14:21 | Outpatient (CLI) | payer MEDICARE, MEDICAID, OTHER | END 2022-12-04 14:22 | disposition home or self-care (01) | LOC: CSHWCC 14:21 | PROVIDERS: ATTEND Nurse Practitioner Family | DX: E11.621 Type 2 diabetes mellitus with foot ulcer (principal); L97.412 Non-pressure chronic ulcer of right heel and midfoot with fat layer exposed; L97.415 Non-pressure chronic ulcer of right heel and midfoot with muscle involvement without evidence of necrosis; R60.0 Localized edema | CPT/HCPCS: 29445; 97597 ==

== ENCOUNTER 2022-12-12 11:10 | Outpatient (CLI) | payer MEDICARE, MEDICAID, OTHER | END 2022-12-12 11:11 | disposition home or self-care (01) | LOC: CSHWCC 11:10 | PROVIDERS: ATTEND Nurse Practitioner Family | DX: E11.621 Type 2 diabetes mellitus with foot ulcer (principal); L97.412 Non-pressure chronic ulcer of right heel and midfoot with fat layer exposed; L97.415 Non-pressure chronic ulcer of right heel and midfoot with muscle involvement without evidence of necrosis; R60.0 Localized edema | CPT/HCPCS: 29445; 97597 ==

== ENCOUNTER 2022-12-19 11:13 | Outpatient (CLI) | payer MEDICARE, MEDICAID, OTHER | END 2022-12-19 11:14 | disposition home or self-care (01) | LOC: CSHWCC 11:13 | PROVIDERS: ATTEND Nurse Practitioner Family | DX: E11.621 Type 2 diabetes mellitus with foot ulcer (principal); L97.415 Non-pressure chronic ulcer of right heel and midfoot with muscle involvement without evidence of necrosis; R60.0 Localized edema | CPT/HCPCS: 29445 ==

== ENCOUNTER 2023-01-15 12:59 | Outpatient (CLI) | payer MEDICARE, OTHER | END 2023-01-15 13:00 | disposition home or self-care (01) | LOC: CSHWCC 12:59 | PROVIDERS: ATTEND Nurse Practitioner Family | DX: L89.153 Pressure ulcer of sacral region, stage 3 (principal); E11.621 Type 2 diabetes mellitus with foot ulcer; L89.890 Pressure ulcer of other site, unstageable; L97.415 Non-pressure chronic ulcer of right heel and midfoot with muscle involvement without evidence of necrosis | CPT/HCPCS: 97139; G0463; 99213 ==

== ENCOUNTER 2023-01-28 11:02 | Outpatient (CLI) | payer MEDICARE, OTHER | END 2023-01-28 11:03 | disposition home or self-care (01) | LOC: CSHWCC 11:02 | PROVIDERS: ATTEND Nurse Practitioner Family | DX: E11.621 Type 2 diabetes mellitus with foot ulcer (principal); L97.412 Non-pressure chronic ulcer of right heel and midfoot with fat layer exposed; L89.150 Pressure ulcer of sacral region, unstageable | CPT/HCPCS: 11042 ==

== ENCOUNTER 2023-02-27 10:18 | Outpatient (CLI) | payer MEDICARE, MEDICAID | END 2023-02-27 10:19 | disposition home or self-care (01) | LOC: CSHWCC 10:18 | PROVIDERS: ATTEND Physician Assistant | DX: L89.150 Pressure ulcer of sacral region, unstageable (principal); S91.309D Unspecified open wound, unspecified foot, subsequent encounter; S91.104D Unspecified open wound of right lesser toe(s) without damage to nail, subsequent encounter; I70.25 Atherosclerosis of native arteries of other extremities with ulceration | CPT/HCPCS: 97607; G0463; 99213 ==

== ENCOUNTER 2023-03-06 10:17 | Outpatient (CLI) | payer MEDICARE, MEDICAID | END 2023-03-06 10:18 | disposition home or self-care (01) | LOC: CSHWCC 10:17 | PROVIDERS: ATTEND Preventive Medicine Undersea and Hyperbaric Medicine | DX: L89.150 Pressure ulcer of sacral region, unstageable (principal); S91.309D Unspecified open wound, unspecified foot, subsequent encounter; S91.104D Unspecified open wound of right lesser toe(s) without damage to nail, subsequent encounter; S71.102D Unspecified open wound, left thigh, subsequent encounter | CPT/HCPCS: 97602; G0463; 99213 ==

== ENCOUNTER 2023-03-08 14:17 | Outpatient (CLI) | payer MEDICARE, MEDICAID | END 2023-03-08 14:18 | disposition home or self-care (01) | LOC: CSHWCC 14:17 | PROVIDERS: ATTEND Preventive Medicine Undersea and Hyperbaric Medicine | DX: S91.309D Unspecified open wound, unspecified foot, subsequent encounter (principal); S91.104D Unspecified open wound of right lesser toe(s) without damage to nail, subsequent encounter; S71.102D Unspecified open wound, left thigh, subsequent encounter | CPT/HCPCS: 99212; G0463 ==

== ENCOUNTER 2023-03-15 10:17 | Outpatient (CLI) | payer MEDICARE, MEDICAID | END 2023-03-15 10:18 | disposition home or self-care (01) | LOC: CSHWCC 10:17 | PROVIDERS: ATTEND Physician Assistant | DX: S71.102A Unspecified open wound, left thigh, initial encounter (principal); L89.890 Pressure ulcer of other site, unstageable; L97.512 Non-pressure chronic ulcer of other part of right foot with fat layer exposed; I73.9 Peripheral vascular disease, unspecified; Z71.6 Tobacco abuse counseling | CPT/HCPCS: 97597; 97598 ==

== ENCOUNTER 2023-03-22 11:00 | Outpatient (CLI) | payer MEDICARE, MEDICAID, OTHER | END 2023-03-22 11:01 | disposition home or self-care (01) | LOC: CSHWCC 11:00 | PROVIDERS: ATTEND Physician Assistant | DX: S71.102D Unspecified open wound, left thigh, subsequent encounter (principal); L89.890 Pressure ulcer of other site, unstageable; L97.512 Non-pressure chronic ulcer of other part of right foot with fat layer exposed; I73.9 Peripheral vascular disease, unspecified; Z71.6 Tobacco abuse counseling | CPT/HCPCS: 97597; 99212; G0463 ==